=== PATIENT | female | born 2000 | race Caucasian/White ===

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

== ENCOUNTER 2021-01-09 16:19 | Emergency (ER) | payer SELFPAY ==
--- NOTE | 2021-01-09 16:19 | NUR ---
PATIENT LEFT WITHOUT BEING SEEN BY DR. KAMARA. NO FURTHER CARE PROVIDED FOR PATIENT.
--- NOTE | 2021-01-09 17:09 | NUR ---
CALLED X1, NO SHOW.
== END 2021-01-09 17:09 | disposition left against medical advice (07) ==
LOC: MED 16:19
DX: Z53.21 Procedure and treatment not carried out due to patient leaving prior to being seen by health care provider (principal)

== ENCOUNTER 2022-09-14 23:44 | Emergency (ER) | payer MEDICAID ==
[~2022-09-14] VITALS: Ht 165.1 cm; Wt 99.8 kg
[2022-09-14 23:54] VITALS: BP 143/85; PULSE 97; RESP 16; TEMP 98.4; O2SAT 100
--- NOTE | 2022-09-15 00:15 | NUR ---
22 YO F BIB SELF C/O BILATERAL KNEE PAIN AND RIGHT SHOULDER PAIN S/P FALL 2 WEEKS AGO. PT STATES SHE FELL ONTO KNEES 2 WEEKS AGO AND DID NOT IMMEDIATELY COME TO ER DUE TO PT WANTING TO "WAIT IT OUT". PAIN BECAME A BURNING SENSATION IN LEFT KNEE WHEN TOUCH APPLIED PROMPTING PT TO COME TO ER. STATES PAIN 5/10 NOW BUT 9/10 WHEN PRESSURE APPLIED TO KNEES. AXO4. -KO FALL. CALL LIGHT WITHIN REACH. [facility] HX: DM2, HTN
--- NOTE | 2022-09-15 00:46 | NUR ---
X-Ray at bedside.
[2022-09-15] MEDS ORDERED: NAPR-54 PO (01:13)
[2022-09-15] MEDS ORDERED: LISI20TA29 PO (01:31)
[2022-09-15] MEDS ORDERED: METF-346 PO (01:31)
[2022-09-15 01:35] VITALS: BP 149/92; PULSE 97; RESP 16; TEMP 98.4; O2SAT 100
--- NOTE | 2022-09-15 01:35 | NUR ---
Patient discharged with v/s stable. Written and verbal after care instructions given and explained. Patient alert, oriented and verbalized understanding of instructions given by Dr. Burkett Ambulatory with steady gait. All questions addressed prior to discharge. ID band removed. Patient advised to follow up with PMD. Rx of LISINOPRIL, METFORMIN, NAPROXEN given. Patient educated on indication of medication including possible reaction and side effects. Opportunity to ask questions provided and answered.
== END 2022-09-15 01:35 | disposition home or self-care (01) ==
LOC: MED 23:44
DX: S83.8X2A Sprain of other specified parts of left knee, initial encounter (principal); R03.0 Elevated blood-pressure reading, without diagnosis of hypertension; E11.65 Type 2 diabetes mellitus with hyperglycemia; Z79.4 Long term (current) use of insulin; Z79.899 Other long term (current) drug therapy; W18.30XA Fall on same level, unspecified, initial encounter; Y93.89 Activity, other specified; Y92.89 Other specified places as the place of occurrence of the external cause; Y99.8 Other external cause status
CPT/HCPCS: 73562; 99283; Q0092

== ENCOUNTER 2023-11-12 21:18 | Emergency (ER) | payer SELFPAY ==
[~2023-11-12] VITALS: Ht 162.6 cm; Wt 99.8 kg
[~2023-11-12 21:18] MED LIST: LISI20TA29 PO; METF-346 PO; NAPR-337 PO
[2023-11-12 21:56] VITALS: BP 137/90; PULSE 96; RESP 18; TEMP 98.2; O2SAT 98
[2023-11-12 22:31] LABS: FLU A ANTIGEN negative (NEGATIVE); FLU B ANTIGEN NEGATIVE (NEGATIVE)
[2023-11-13 01:30] LABS: APPEARANCE,URINE CLEAR (CLEAR); BILIRUBIN,URINE NEGATIVE (NEGATIVE); BLOOD, URINE NEGATIVE (NEGATIVE); COLOR,URINE YELLOW (YELLOW); LEUKOCYTE ESTERASE ,URINE NEGATIVE (NEGATIVE); NITRITE, URINE NEGATIVE (NEGATIVE); PROTEIN,URINE NEGATIVE (NEGATIVE); UGLUCOSE 3+ (NEGATIVE); UROBILINOGEN,URINE 0.2 EU/dL (0.2 - 1)
[2023-11-13 01:58] LABS: BASOPHILS # (AUTO) 0.1 K/uL (0.00-0.22); BASOPHILS % (AUTO) 0.5 % (0.0-2.0); EOSINOPHILS # (AUTO) 0.1 K/uL (0-0.4); EOSINOPHILS % (AUTO) 0.5 % (0.0-4.0); HEMATOCRIT 44.6 % (36-48); HEMOGLOBIN 15.1 g/dL (12.0-16.0); LYMPHOCYTES # (AUTO) 4.3 K/uL (2.5-16.5); LYMPHOCYTES % (AUTO) 29.6 % (20.5-51.1); MEAN CORPUSCULAR HEMOGLOBIN 29 pg (27-31); MEAN CORPUSCULAR HGB CONC 34 g/dL (33-37); MEAN CORPUSCULAR VOLUME 84.9 fL (80-94); MONOCYTES # (AUTO) 0.8 K/uL (0.8-1.0); MONOCYTES % (AUTO) 5.5 % (1.7-9.3); NEUTROPHILS # (AUTO) 9.2 K/uL (1.8-7.7); NEUTROPHILS % (AUTO) 63.9 % (42.2-75.2); PLATELET COUNT (AUTO) 446 K/uL (140-450); RED BLOOD CELL COUNT(AUTO) 5.26 MIL/uL (4.20-5.40); RED CELL DISTRIBUTION WIDTH 13.3 % (11.6-13.7); WHITE BLOOD COUNT (AUTO) 14.4 K/uL (4.8-10.8)
[2023-11-13] MEDS: NACL 0.9% 1,000 ML IV ONE (02:02)
[2023-11-13] MEDS: ONDANSETRON 4 MG/2 ML VIAL IVP ONE (02:03)
[2023-11-13] MEDS: KETOROLAC 30 MG/ML VIAL IVP ONE (02:04)
[2023-11-13 02:10] LABS: ANION GAP 14.1 (8-16); CALCIUM 9.4 mg/dL (8.5-10.1); CARBON DIOXIDE 26.6 mmol/L (21-32); CREATININE 0.6 mg/dL (0.6-1.3); POTASSIUM 3.7 mmol/L (3.5-5.1)
[2023-11-13 02:17] LABS: ALBUMIN 4.2 g/dL (3.4-5.0); BILIRUBIN,DIRECT 0.1 mg/dL (0.0-0.3); TOTAL BILIRUBIN 0.4 mg/dL (0.0-1.0)
[2023-11-13] MEDS ORDERED: METR-435 PO (03:35)
[2023-11-13] MEDS ORDERED: METF-346 PO (03:35)
[2023-11-13] MEDS ORDERED: BEN10 PO (03:35)
[2023-11-13] MEDS ORDERED: ONDA-188 PO (03:35)
[2023-11-13 03:50] VITALS: BP 119/81; PULSE 84; RESP 16; TEMP 98; O2SAT 97
== END 2023-11-13 03:50 | disposition home or self-care (01) ==
LOC: MED 21:18
DX: R11.2 Nausea with vomiting, unspecified (principal); R19.7 Diarrhea, unspecified; E11.9 Type 2 diabetes mellitus without complications; I10 Essential (primary) hypertension; Z20.822 Contact with and (suspected) exposure to COVID-19; Z79.84 Long term (current) use of oral hypoglycemic drugs; Z79.899 Other long term (current) drug therapy
CPT/HCPCS: 36415; 74176; 80048; 80076; 81003; 81025; 83690; 84703; 85025; 87426; 87804; 96361; 96374; 96375; 99285; J1885; J2405; J7030